=== PATIENT | male | born 1945 | race African-American/Black ===

== ENCOUNTER 2017-05-12 11:25 | Inpatient (IN) | payer OTHER ==
[2017-05-12 11:43] VITALS: BMI 31.0
--- NOTE | 2017-05-12 12:40 | HP ---
COWS - Scale Resting Pulse: 0= [place] 80 or Below Sweatin= Chills/Flushing Restless Observation: 1= Difficult to Sit Still Pupil Size: 0= Normal to Room Light Bone or Joint Aches: 1= Mild Discomfort Runny Nose/ Eye Tearin= Nasal Congestion GI Upset > 30mins: 2= Nausea/Diarrhea Tremor Observation: 1= Tremor B[place], Not Seen Yawning Observation: 1= 1-2x During Session Anxiety or Irritability: 1=Feels Anxious/Irritable Goose Flesh Skin: 0=Smooth Skin COWS Score: 9 Admission ROS S - HPI Chief Complaint: I need help to stop taking the oxycodone Allergies/Adverse Reactions: Allergies Allergy/AdvReac Type Severity Reaction Status Date / Time No Known Allergies Allergy Verified 05/12/17 13:00 History of Present Illness: 71 yo gentleman here for detox from oxycodone - history of being prescribed for pain but admits he sometimes takes more than prescribed and sometimes buys on street but wants to stop. No seizures. Gives past history of drinking and marijuana 'when younger'. Exam Limitations: Clinical Condition - Ebola screening Have you traveled outside of the country in the last 21 days: No Have you had contact with anyone from an Ebola affected area: No Have you been sick,other than usual withdrawal symptoms: No Do you have a fever: No - Review of Systems Constitutional: Loss of Appetite, Malaise EENT: reports: No Symptoms Reported, Blurred Vision, Nose Congestion Respiratory: reports: No Symptoms reported Cardiac: reports: Palpitations GI: reports: Nausea, Poor Appetite, Indigestion : reports: No Symptoms Reported Musculoskeletal: reports: Back Pain, Joint Pain Integumentary: reports: No Symptoms Reported Neuro: reports: No Symptoms reported Endocrine: reports: No Symptoms Reported Hematology: reports: No Symptoms Reported Psychiatric: reports: Judgement Intact, Mood/Affect Appropiate, Orientated x3, Anxious Other Systems: Reviewed and Negative Patient History - Patient Medical History Hx Anemia: No Hx Asthma: No Hx Chronic Obstructive Pulmonary Disease (COPD): Yes Hx Cancer: No Hx Cardiac Disorders: Yes Hx Congestive Heart Failure: Yes Hx Hypertension: Yes (on meds.) Hx Hypercholesterolemia: No Hx Pacemaker: No HX Cerebrovascular Accident: No Hx Seizures: No Hx Dementia: No Hx Diabetes: No Hx Gastrointestinal Disorders: Yes (history of peptic ulcer) Hx Liver Disease: No Hx Genitourinary Disorders: No Hx Sexually Transmitted Disorders: No Hx Renal Disease (ESRD): No Hx Thyroid Disease: No Hx Human Immunodeficiency Virus (HIV): No Hx Hepatitis C: No Hx Depression: No Hx Suicide Attempt: No Hx Schizophrenia: No - Patient Surgical History Past Surgical History: Yes Hx Neurologic Surgery: No Hx Cataract Extraction: No Hx Cardiac Surgery: No Hx Lung Surgery: Yes (Sx on R lung 20 yrs ago [facility]) Hx Breast Surgery: No Hx Breast Biopsy: No Hx Abdominal Surgery: No Hx Appendectomy: No Hx Cholecystectomy: No Hx Genitourinary Surgery: No Hx Section: No Hx Orthopedic Surgery: Yes (lumbar fusion 2015) Anesthesia Reaction: No - PPD History Previous Implant?: Yes Date: 03/21/12 PPD to be Administered?: Yes - Reproductive History Patient is a Female of Child Bearing Age (11 -55 yrs old): No (male) - Smoking Cessation Smoking history: Former smoker Have you smoked in the past 12 months: No If you are a former smoker, when did you quit?: 1981 Hx Chewing Tobacco Use: No Initiated information on smoking cessation: No - Substance & Tx. History Hx Alcohol Use: No Hx Substance Use: Yes Substance Use Type: Opiates, Prescribed Hx Substance Use Treatment: Yes (detox) - Substances Abused oxycodone Route: Oral Frequency: Daily Amount used: 20 mg Age of first use: 38 (rx for pain) Date of Last Use: 05/12/17 Family Disease History - Family Disease History Family Disease History: Heart Disease: Mother (, cva), Other: Father ( unknown), Mother, Daughter (two - healthy (overweight)) Admission Physical Exam [facility] - Vital Signs Vital Signs: Vital Signs - 24 hr 05/12/17 11:28 Temperature 97 F L Pulse Rate 73 Respiratory 20 Rate Blood Pressure 196/86 - Physical General Appearance: Yes: Nourished, Appropriately Dressed, Moderate Distress, Anxious HEENTM: Yes: Normocephalic, Normal Voice, Pharynx Normal, Hearing Decreased, Other (two hearing aids) Respiratory: Yes: Normal Breath Sounds, No Respiratory Distress Neck: Yes: No masses,lesions,Nodules, Supple Breast: Yes: Breast Exam Deferred Cardiology: Yes: Regular Rate, Irregular Abdominal: Yes: Soft Genitourinary: Yes: Within Normal Limits Back: Yes: Decreased Range of Motion, Other (kyphosis, needs cane) Musculoskeletal: Yes: Gait Steady, Joint Stiffness Extremities: Yes: Pedal Edema Neurological: Yes: Fully Oriented, Alert, Normal Mood/Affect, Normal Response Integumentary: Yes: Normal Color, Warm Lymphatic: Yes: Within Normal Limits - Diagnostic (1) Uncomplicated opioid dependence Current Visit: Yes Status: Chronic (2) BPH (benign prostatic hyperplasia) Current Visit: Yes Status: Chronic Qualifiers: Lower urinary tract symptom presence: symptoms present (3) History of peptic ulcer Current Visit: Yes Status: Chronic (4) Essential hypertension Current Visit: Yes Status: Chronic (5) CHF (congestive heart failure) Current Visit: Yes Status: Chronic Qualifiers: Congestive heart failure type: unspecified congestive heart failure type Congestive heart failure chronicity: chronic Qualified Code(s): I50.9 - Heart failure, unspecified (6) Osteoarthritis Current Visit: Yes Status: Chronic Qualifiers: Osteoarthritis location: knee Osteoarthritis type: primary Laterality: bilateral Qualified Code(s): M17.0 - Bilateral primary osteoarthritis of knee (7) Hearing reduced Current Visit: Yes Status: Chronic Qualifiers: Laterality: bilateral Qualified Code(s): H91.93 - Unspecified hearing loss, bilateral Comment: has hearing aids Cleared for Admission [facility] - Detox or Rehab [facility] Level of Care: Medically Managed Detox Regimen/Protocol: Methadone [facility] Breath Alcohol Content Breath Alcohol Content: 0 Urine Drug Screen - Results Drug Screen Negative: No Urine Drug Screen Results: TCA-Tricyclic Antidepress, OXY-Oxycodone
[2017-05-12] MEDS ORDERED: ACETAMINOPHEN 325 MG TABLET (FP) PO PRN (12:49)
[2017-05-12] MEDS ORDERED: MAGNESIUM CITRATE 300 ML BOTTLE PO PRN (12:49)
[2017-05-12] MEDS ORDERED: guaiFENesin/D-METHORPHAN HB 10 ML UNIT-DOSE CUPS PO PRN (12:49)
[2017-05-12] MEDS ORDERED: P-EPHED 60MG/TRIPROLIDI 2.5MG TABLET PO PRN (12:49)
[2017-05-12] MEDS ORDERED: LOPERAMIDE HCL 2 MG CAPSULE PO PRN (12:49)
[2017-05-12] MEDS ORDERED: MAG HYDROX/AL HYDROX/SIMETH 30 ML UNIT-DOSE CUP PO PRN (12:49)
[2017-05-12] MEDS ORDERED: MENTHOL/PHENOL 1 EACH UD MM PRN (12:49)
[2017-05-12] MEDS ORDERED: MAGNESIUM HYDROX 2400MG/30ML ORAL SUSPENSION 30 ML CUP PO PRN (12:49)
[2017-05-12] MEDS ORDERED: METHADONE HCL 10 MG TABLET (FOR DETOX USE ONLY) PO ONE ×2 (13:30→23:00)
[2017-05-12] MEDS: FUROSEMIDE 40 MG TABLET (FP) PO SCH (14:33)
[2017-05-12] MEDS: diazePAM 5 MG TABLET PO PRN (14:33)
[2017-05-12 17:17] LABS: URINE APPEARANCE CLEAR; URINE BILIRUBIN NEGATIVE (NEGATIVE); URINE BLOOD NEGATIVE (NEGATIVE); URINE COLOR YELLOW; URINE GLUCOSE (UA) NEGATIVE (NEGATIVE); URINE KETONE NEGATIVE (NEGATIVE); URINE LEUK ESTERASE NEGATIVE (NEGATIVE); URINE NITRITE NEGATIVE (NEGATIVE); URINE UROBILINOGEN NEGATIVE mg/dL (0.2-1.0)
[2017-05-12 17:22] LABS: URINE PROTEIN 1+ (NEGATIVE)
[2017-05-12 17:27] LABS: GRANULAR CASTS 16 /lpf; URINE MUCUS RARE; URINE RBC 2 /hpf (0-3); URINE WBC 1 /hpf (3-5)
[2017-05-12] MEDS ORDERED: POTASSIUM CHLORIDE 10 MEQ PO SCH (22:00)
[2017-05-12] MEDS: BUDESONIDE/FORMETEROL FUMARATE 80/4.5 mcg INHALER IH SCH (22:25)
[2017-05-12] MEDS: THIAMINE HCL 100 MG TABLET (FP) PO SCH (22:26)
[2017-05-12] MEDS: diphenhydrAMINE HCL 50 MG CAPSULE PO PRN (22:27)
[2017-05-13] MEDS: diazePAM 5 MG TABLET PO PRN ×3 (06:04→17:43)
[2017-05-13] MEDS ORDERED: METOPROLOL SUCCINATE 25 MG TAB.SR.24H (FP) PO SCH (07:45)
--- NOTE | 2017-05-13 08:46 | EKG ---
Test Reason : Blood Pressure : / mmHG Vent. Rate : 063 BPM Atrial Rate : 063 BPM P-R Int : 168 ms QRS Dur : 074 ms QT Int : 426 ms P-R-T Axes : 054 041 058 degrees QTc Int : 435 ms NORMAL SINUS RHYTHM POSSIBLE LEFT ATRIAL ENLARGEMENT SEPTAL INFARCT , AGE UNDETERMINED ABNORMAL ECG NO PREVIOUS ECGS AVAILABLE Confirmed by MD SHAHLA, ELIZABETH ([id number]) on 05/13/2017 8:45:50 AM Referred By: Confirmed By:ELIZABETH GALE MD
[2017-05-13] MEDS: TAMSULOSIN HCL 0.4 MG CAP.ER.24H (FP) PO SCH (08:54)
[2017-05-13] MEDS ORDERED: METHADONE HCL 10 MG TABLET (FOR DETOX USE ONLY) PO ONE (10:00)
[2017-05-13 10:19] LABS: MCH 29.7 pg (25.7-33.7); MCHC 32.4 g/dl (32.0-35.9); MEAN CELL VOLUME 91.7 fl (80-96); MEAN PLT VOLUME 9.5 fl (7.5-11.1); PLATELET COUNT 106 K/MM3 (134-434); RDW 17.5 % (11.9-15.9); WHITE BLOOD COUNT 3.5 K/mm3 (4.0-10.0)
[2017-05-13] MEDS: PRENATAL VITAMINS W/ FOLIC ACID TABLET (FP) PO SCH (10:25)
[2017-05-13] MEDS: BUDESONIDE/FORMETEROL FUMARATE 80/4.5 mcg INHALER IH SCH ×2 (10:26→22:23)
[2017-05-13] MEDS: PANTOPRAZOLE 40 MG TABLET (FP) PO SCH (10:27)
[2017-05-13] MEDS: FUROSEMIDE 40 MG TABLET (FP) PO SCH (10:27)
[2017-05-13 10:31] LABS: CALCIUM 8.6 mg/dL (8.5-10.1)
[2017-05-13 10:37] LABS: ALBUMIN 2.9 g/dl (3.4-5.0); ALK PHOS 182 U/L (45-117); ANION GAP 7 (8-16); BILIRUBIN,TOTAL 0.7 mg/dL (0.2-1.0); CO2 27 mmol/L (21-32); CREATININE 1.1 mg/dL (0.7-1.3); GLUCOSE,RANDOM 84 mg/dL (74-106); SGOT/AST 31 U/L (15-37); SGPT/ALT 16 U/L (12-78); TOT PROT 7.6 g/dl (6.4-8.2)
[2017-05-13] MEDS: POTASSIUM CHLORIDE TABS 20 MEQ TABLET.ER (FP) PO SCH (13:36)
--- NOTE | 2017-05-13 13:55 | PN ---
BHS COWS - Scale Resting Pulse: 2= [place] 101-120 Sweatin= Chills/Flushing Restless Observation: 3= Extraneous Movement Pupil Size: 1= Pupils >than Normal Bone or Joint Aches: 2= Severe Diffuse Aches Runny Nose/ Eye Tearin= Runny Nose/Eyes GI Upset > 30mins: 2= Nausea/Diarrhea Tremor Observation of Outstretched Hands: 2= Slight Tremor Visible Yawning Observation: 0= None Anxiety or Irritability: 2=Irritable/Anxious Goose Flesh Skin: 0=Smooth Skin COWS Score: 17 BHS Progress Note (SOAP) Subjective: Nausea, sweating, anxious, interrupted sleep Objective: 05/13/17 13:52 Last Vital Signs Temp Pulse Resp BP Pulse Ox 97.6 F 110 H 20 170/78 05/13/17 13:41 05/13/17 13:41 05/13/17 13:41 05/13/17 13:41 Laboratory Tests 05/12/17 05/13/17 05/13/17 15:45 07:30 07:30 WBC 3.5 L RBC 3.98 L Hgb 11.8 Hct 36.5 MCV 91.7 MCH 29.7 MCHC 32.4 RDW 17.5 H D Plt Count 106 L D MPV 9.5 Sodium 143 Potassium 4.1 Chloride 109 H Carbon Dioxide 27 Anion Gap 7 L BUN 20 H D Creatinine 1.1 Creat Clearance w eGFR > 60 Random Glucose 84 D Calcium 8.6 Total Bilirubin 0.7 AST 31 D ALT 16 Alkaline Phosphatase 182 H D Total Protein 7.6 Albumin 2.9 L D Urine Color Yellow Urine Appearance Clear Urine pH 5.0 Ur Specific [place] 1.025 Urine Protein 1+ H Urine Glucose (UA) Negative Urine Ketones Negative Urine Blood Negative Urine Nitrite Negative Urine Bilirubin Negative Urine Urobilinogen Negative Urine RBC 2 Urine WBC 1 Ur Epithelial Cells Rare Granular Casts 16 Urine Mucus Rare RPR Titer 05/13/17 07:30 WBC RBC Hgb Hct MCV MCH MCHC RDW Plt Count MPV Sodium Potassium Chloride Carbon Dioxide Anion Gap BUN Creatinine Creat Clearance w eGFR Random Glucose Calcium Total Bilirubin AST ALT Alkaline Phosphatase Total Protein Albumin Urine Color Urine Appearance Urine pH Ur Specific [place] Urine Protein Urine Glucose (UA) Urine Ketones Urine Blood Urine Nitrite Urine Bilirubin Urine Urobilinogen Urine RBC Urine WBC Ur Epithelial Cells Granular Casts Urine Mucus RPR Titer Nonreactive Labs noted: bun 20, UA: abnormal Assessment: 05/13/17 13:53 Withdrawal symptoms Noted with mild azotemia and abnormal UA Plan: Continue detox Mild azotemia: encouraged to drink lots of water Abnormal UA: encouraged to drink lots of water, repeat UA
[2017-05-13] MEDS: ALBUTEROL SO4 6.7 GM HFA INHALER IH PRN (18:10)
[2017-05-13] MEDS: diphenhydrAMINE HCL 50 MG CAPSULE PO PRN (22:23)
[2017-05-13] MEDS: METOPROLOL SUCCINATE 50 MG TAB.SR.24H (FP) PO SCH (22:23)
[2017-05-13] MEDS: THIAMINE HCL 100 MG TABLET (FP) PO SCH (22:23)
[2017-05-14] MEDS: diazePAM 5 MG TABLET PO PRN ×2 (05:31→09:32)
[2017-05-14] MEDS: ALBUTEROL SO4 6.7 GM HFA INHALER IH PRN (05:32)
[2017-05-14] MEDS: TAMSULOSIN HCL 0.4 MG CAP.ER.24H (FP) PO SCH (09:32)
--- NOTE | 2017-05-14 09:55 | PN ---
S COWS - Scale Resting Pulse: 2= [place] 101-120 Sweatin=Flushed/Facial Moisture Restless Observation: 0= Sits Still Pupil Size: 0= Normal to Room Light Bone or Joint Aches: 1= Mild Discomfort Runny Nose/ Eye Tearin= Nasal Congestion GI Upset > 30mins: 1= Stomach Cramp Tremor Observation of Outstretched Hands: 2= Slight Tremor Visible Yawning Observation: 1= 1-2x During Session Anxiety or Irritability: 2=Irritable/Anxious Goose Flesh Skin: 0=Smooth Skin COWS Score: 12 S Progress Note (SOAP) Subjective: Body aches,sweating,interrupted sleep,restless Objective: 05/14/17 09:53 Vital Signs - 8 hr 05/14/17 05/14/17 03:22 06:12 Temperature 98.7 F Pulse Rate 116 H Respiratory 18 18 Rate Blood Pressure 183/88 Laboratory Tests 05/12/17 05/13/17 05/13/17 15:45 07:30 07:30 WBC 3.5 L RBC 3.98 L Hgb 11.8 Hct 36.5 MCV 91.7 MCH 29.7 MCHC 32.4 RDW 17.5 H D Plt Count 106 L D MPV 9.5 Sodium 143 Potassium 4.1 Chloride 109 H Carbon Dioxide 27 Anion Gap 7 L BUN 20 H D Creatinine 1.1 Creat Clearance w eGFR > 60 Random Glucose 84 D Calcium 8.6 Total Bilirubin 0.7 AST 31 D ALT 16 Alkaline Phosphatase 182 H D Total Protein 7.6 Albumin 2.9 L D Urine Color Yellow Urine Appearance Clear Urine pH 5.0 Ur Specific [place] 1.025 Urine Protein 1+ H Urine Glucose (UA) Negative Urine Ketones Negative Urine Blood Negative Urine Nitrite Negative Urine Bilirubin Negative Urine Urobilinogen Negative Urine RBC 2 Urine WBC 1 Ur Epithelial Cells Rare Granular Casts 16 Urine Mucus Rare RPR Titer 05/13/17 07:30 WBC RBC Hgb Hct MCV MCH MCHC RDW Plt Count MPV Sodium Potassium Chloride Carbon Dioxide Anion Gap BUN Creatinine Creat Clearance w eGFR Random Glucose Calcium Total Bilirubin AST ALT Alkaline Phosphatase Total Protein Albumin Urine Color Urine Appearance Urine pH Ur Specific [place] Urine Protein Urine Glucose (UA) Urine Ketones Urine Blood Urine Nitrite Urine Bilirubin Urine Urobilinogen Urine RBC Urine WBC Ur Epithelial Cells Granular Casts Urine Mucus RPR Titer Nonreactive labs noted Assessment: 05/14/17 09:54 Withdrawal sx. Uncontrolled HTN Plan: Continue detox Lisinopril 20mg bid
[2017-05-14] MEDS ORDERED: METHADONE HCL 5 MG TABLET (FOR DETOX USE ONLY) PO ONE (10:00)
[2017-05-14 10:14] LABS: URINE APPEARANCE CLEAR; URINE BILIRUBIN NEGATIVE (NEGATIVE); URINE BLOOD NEGATIVE (NEGATIVE); URINE COLOR YELLOW; URINE GLUCOSE (UA) NEGATIVE (NEGATIVE); URINE KETONE NEGATIVE (NEGATIVE); URINE LEUK ESTERASE NEGATIVE (NEGATIVE); URINE NITRITE NEGATIVE (NEGATIVE); URINE UROBILINOGEN NEGATIVE mg/dL (0.2-1.0)
[2017-05-14 10:16] LABS: URINE PROTEIN 1+ (NEGATIVE)
[2017-05-14] MEDS: PANTOPRAZOLE 40 MG TABLET (FP) PO SCH (10:30)
[2017-05-14] MEDS: FUROSEMIDE 40 MG TABLET (FP) PO SCH (10:30)
[2017-05-14] MEDS: POTASSIUM CHLORIDE TABS 20 MEQ TABLET.ER (FP) PO SCH (10:30)
[2017-05-14] MEDS: METOPROLOL SUCCINATE 50 MG TAB.SR.24H (FP) PO SCH ×2 (10:31→22:21)
[2017-05-14] MEDS: PRENATAL VITAMINS W/ FOLIC ACID TABLET (FP) PO SCH (10:31)
[2017-05-14] MEDS: BUDESONIDE/FORMETEROL FUMARATE 80/4.5 mcg INHALER IH SCH ×2 (10:32→22:21)
[2017-05-14] MEDS: LISINOPRIL 20 MG TABLET (FP) PO SCH ×2 (10:32→22:21)
[2017-05-14 10:39] LABS: URINE MUCUS RARE; URINE RBC <1 /hpf (0-3); URINE WBC 1 /hpf (3-5)
[2017-05-14] MEDS: diphenhydrAMINE HCL 50 MG CAPSULE PO PRN (22:21)
[2017-05-14] MEDS: THIAMINE HCL 100 MG TABLET (FP) PO SCH (22:29)
[2017-05-15] MEDS: ALBUTEROL SO4 6.7 GM HFA INHALER IH PRN ×2 (05:43→20:20)
[2017-05-15] MEDS ORDERED: METHADONE HCL 5 MG TABLET (FOR DETOX USE ONLY) PO ONE (10:00)
[2017-05-15] MEDS: LISINOPRIL 20 MG TABLET (FP) PO SCH ×2 (10:20→22:23)
[2017-05-15] MEDS: PANTOPRAZOLE 40 MG TABLET (FP) PO SCH (10:20)
[2017-05-15] MEDS: METOPROLOL SUCCINATE 50 MG TAB.SR.24H (FP) PO SCH ×2 (10:20→22:23)
[2017-05-15] MEDS: PRENATAL VITAMINS W/ FOLIC ACID TABLET (FP) PO SCH (10:20)
[2017-05-15] MEDS: FUROSEMIDE 40 MG TABLET (FP) PO SCH (10:20)
[2017-05-15] MEDS: TAMSULOSIN HCL 0.4 MG CAP.ER.24H (FP) PO SCH (10:20)
[2017-05-15] MEDS: POTASSIUM CHLORIDE TABS 20 MEQ TABLET.ER (FP) PO SCH (10:21)
[2017-05-15] MEDS: BUDESONIDE/FORMETEROL FUMARATE 80/4.5 mcg INHALER IH SCH ×2 (10:21→22:24)
--- NOTE | 2017-05-15 13:00 | PN ---
BHS Progress Note (SOAP) Subjective: Tremors, H/A, Interrupted sleep. Objective: PT. A & 0 X 2 (DISORIENTED BOUT DAY / DATE). PT. OBSERVED AMBULATING ON UNIT WITH ASSISTANCE OF A CANE. NO ACUTE DISTRESS. 05/15/17 12:55 Vital Signs Temperature 97.1 F L 05/15/17 09:24 Pulse Rate 79 05/15/17 09:24 Respiratory Rate 18 05/15/17 09:24 Blood Pressure 175/85 05/15/17 09:24 O2 Sat by Pulse Oximetry (%) Laboratory Tests 05/12/17 05/13/17 05/13/17 15:45 07:30 07:30 WBC 3.5 L RBC 3.98 L Hgb 11.8 Hct 36.5 MCV 91.7 MCH 29.7 MCHC 32.4 RDW 17.5 H D Plt Count 106 L D MPV 9.5 Sodium 143 Potassium 4.1 Chloride 109 H Carbon Dioxide 27 Anion Gap 7 L BUN 20 H D Creatinine 1.1 Creat Clearance w eGFR > 60 Random Glucose 84 D Calcium 8.6 Total Bilirubin 0.7 AST 31 D ALT 16 Alkaline Phosphatase 182 H D Total Protein 7.6 Albumin 2.9 L D Urine Color Yellow Urine Appearance Clear Urine pH 5.0 Ur Specific [place] 1.025 Urine Protein 1+ H Urine Glucose (UA) Negative Urine Ketones Negative Urine Blood Negative Urine Nitrite Negative Urine Bilirubin Negative Urine Urobilinogen Negative Urine RBC 2 Urine WBC 1 Ur Epithelial Cells Rare Granular Casts 16 Urine Mucus Rare RPR Titer 05/13/17 05/14/17 07:30 07:50 WBC RBC Hgb Hct MCV MCH MCHC RDW Plt Count MPV Sodium Potassium Chloride Carbon Dioxide Anion Gap BUN Creatinine Creat Clearance w eGFR Random Glucose Calcium Total Bilirubin AST ALT Alkaline Phosphatase Total Protein Albumin Urine Color Yellow Urine Appearance Clear Urine pH 5.0 Ur Specific [place] 1.015 Urine Protein 1+ H Urine Glucose (UA) Negative Urine Ketones Negative Urine Blood Negative Urine Nitrite Negative Urine Bilirubin Negative Urine Urobilinogen Negative Urine RBC <1 Urine WBC 1 Ur Epithelial Cells Rare Granular Casts Urine Mucus Rare RPR Titer Nonreactive LABS NOTED. Assessment: 05/15/17 12:56 WITHDRAWAL SYMPTOMS. Plan: CONTINUE DETOX. REPEAT AP ON 05/16/2017 FOR ELEVATED ADMISSION LEVEL.
[2017-05-15] MEDS: ALBUTEROL SO4 2.5/IPRATROPIUM 0.5 INH SOL 3 ML VIAL.NEB. NEB PRN (20:21)
[2017-05-15] MEDS: diphenhydrAMINE HCL 50 MG CAPSULE PO PRN (22:23)
[2017-05-15] MEDS: THIAMINE HCL 100 MG TABLET (FP) PO SCH (22:24)
[2017-05-16] MEDS: ALBUTEROL SO4 6.7 GM HFA INHALER IH PRN (05:42)
[2017-05-16] MEDS: ALBUTEROL SO4 2.5/IPRATROPIUM 0.5 INH SOL 3 ML VIAL.NEB. NEB PRN ×2 (06:03→12:32)
[2017-05-16] MEDS ORDERED: cloNIDine HCL 0.1 MG TABLET PO ONE (07:45)
[2017-05-16] MEDS ORDERED: METHADONE HCL 10 MG TABLET (FOR DETOX USE ONLY) PO ONE (10:00)
[2017-05-16] MEDS: TAMSULOSIN HCL 0.4 MG CAP.ER.24H (FP) PO SCH (10:13)
[2017-05-16] MEDS: PRENATAL VITAMINS W/ FOLIC ACID TABLET (FP) PO SCH (10:13)
[2017-05-16] MEDS: LISINOPRIL 20 MG TABLET (FP) PO SCH ×2 (10:13→22:22)
[2017-05-16] MEDS: PANTOPRAZOLE 40 MG TABLET (FP) PO SCH (10:13)
[2017-05-16] MEDS: METOPROLOL SUCCINATE 50 MG TAB.SR.24H (FP) PO SCH ×2 (10:13→22:22)
[2017-05-16] MEDS: BUDESONIDE/FORMETEROL FUMARATE 80/4.5 mcg INHALER IH SCH ×2 (10:13→22:22)
[2017-05-16] MEDS: FUROSEMIDE 40 MG TABLET (FP) PO SCH (10:13)
[2017-05-16] MEDS: POTASSIUM CHLORIDE TABS 20 MEQ TABLET.ER (FP) PO SCH (10:13)
--- NOTE | 2017-05-16 13:04 | PN ---
BHS Progress Note (SOAP) Subjective: Body aches, Stomach Cramping. Objective: PT. A & O X 2 (DISORIENTED ABOUT DAY / DATE). NO ACUTE DISTRESS. PT. DENIES CHEST PAIN. 05/16/17 13:02 Vital Signs Temperature 98 F 05/16/17 09:23 Pulse Rate 82 05/16/17 09:23 Respiratory Rate 20 05/16/17 09:23 Blood Pressure 186/89 05/16/17 09:23 O2 Sat by Pulse Oximetry (%) Laboratory Tests 05/12/17 05/13/17 05/13/17 15:45 07:30 07:30 WBC 3.5 L RBC 3.98 L Hgb 11.8 Hct 36.5 MCV 91.7 MCH 29.7 MCHC 32.4 RDW 17.5 H D Plt Count 106 L D MPV 9.5 Sodium 143 Potassium 4.1 Chloride 109 H Carbon Dioxide 27 Anion Gap 7 L BUN 20 H D Creatinine 1.1 Creat Clearance w eGFR > 60 Random Glucose 84 D Calcium 8.6 Total Bilirubin 0.7 AST 31 D ALT 16 Alkaline Phosphatase 182 H D Total Protein 7.6 Albumin 2.9 L D Urine Color Yellow Urine Appearance Clear Urine pH 5.0 Ur Specific [place] 1.025 Urine Protein 1+ H Urine Glucose (UA) Negative Urine Ketones Negative Urine Blood Negative Urine Nitrite Negative Urine Bilirubin Negative Urine Urobilinogen Negative Urine RBC 2 Urine WBC 1 Ur Epithelial Cells Rare Granular Casts 16 Urine Mucus Rare RPR Titer 05/13/17 05/14/17 07:30 07:50 WBC RBC Hgb Hct MCV MCH MCHC RDW Plt Count MPV Sodium Potassium Chloride Carbon Dioxide Anion Gap BUN Creatinine Creat Clearance w eGFR Random Glucose Calcium Total Bilirubin AST ALT Alkaline Phosphatase Total Protein Albumin Urine Color Yellow Urine Appearance Clear Urine pH 5.0 Ur Specific [place] 1.015 Urine Protein 1+ H Urine Glucose (UA) Negative Urine Ketones Negative Urine Blood Negative Urine Nitrite Negative Urine Bilirubin Negative Urine Urobilinogen Negative Urine RBC <1 Urine WBC 1 Ur Epithelial Cells Rare Granular Casts Urine Mucus Rare RPR Titer Nonreactive LABS NOTED. RESULT OF REPEAT AP PENDING. 05/16/17 13:05 Assessment: 05/16/17 13:03 WITHDRAWAL SYMPTOMS. Plan: CONTINUE DETOX.
[2017-05-16] MEDS: diphenhydrAMINE HCL 50 MG CAPSULE PO PRN (22:22)
[2017-05-16] MEDS: THIAMINE HCL 100 MG TABLET (FP) PO SCH (22:22)
[2017-05-17] MEDS: ALBUTEROL SO4 6.7 GM HFA INHALER IH PRN (05:46)
[2017-05-17] MEDS: ALBUTEROL SO4 2.5/IPRATROPIUM 0.5 INH SOL 3 ML VIAL.NEB. NEB PRN (05:56)
[2017-05-17] MEDS ORDERED: METHADONE HCL 5 MG TABLET (FOR DETOX USE ONLY) PO ONE (06:00)
[2017-05-17 09:17] VITALS: BP 184/73; PULSE 72; TEMP 97.1
[2017-05-17] MEDS: TAMSULOSIN HCL 0.4 MG CAP.ER.24H (FP) PO SCH (09:38)
== END 2017-05-17 09:30 | disposition home or self-care (01) | DRG 897 ==
LOC: YASAS 11:25 → Y3N 13:16
PROVIDERS: ADMIT Internal Medicine; ATTEND Internal Medicine
PROC: HZ2ZZZZ Detoxification Services for Substance Abuse Treatment (ICD-10-PCS; principal; 2017-05-12)
DX: F19.230 Other psychoactive substance dependence with withdrawal, uncomplicated (principal); F11.23 Opioid dependence with withdrawal; J44.9 Chronic obstructive pulmonary disease, unspecified; N40.0 Benign prostatic hyperplasia without lower urinary tract symptoms; I10 Essential (primary) hypertension; I50.9 Heart failure, unspecified; R82.90 Unspecified abnormal findings in urine; R79.89 Other specified abnormal findings of blood chemistry; M17.0 Bilateral primary osteoarthritis of knee; Z87.11 Personal history of peptic ulcer disease; Z87.891 Personal history of nicotine dependence
CPT/HCPCS: 36415; 71010-TC; 80053; 81003; 81015; 84075; 85027; 86593; 93005; 93010; 94640